=== PATIENT | female | born 1935 | race Caucasian/White ===

== ENCOUNTER 2019-03-09 18:07 | Inpatient (IN) ==
[2019-03-09] MEDS: VASOPRESSIN 100 UNITS in SODIUM CHLORIDE 0.9% 95 ML IV SCH (20:05)
[2019-03-09] MEDS ORDERED: SODIUM CHLORIDE 0.9% 1,000 ML IV PRN ×3 (20:19→21:01)
[2019-03-09 20:21] LABS: Hematocrit 39.2 VOL% (35.7-47.0)
[2019-03-09] MEDS ORDERED: ONDANSETRON 4 MG/2 ML VIAL IV PRN (20:50)
[2019-03-09] MEDS ORDERED: ALBUTEROL 2.5 MG/3 ML NEB RESP TX PRN (20:50)
[2019-03-09 20:53] LABS: INR 1.2; PT Patient Result 12.7 SECS (9.6-12.2); Partial Thromboplastin Time 27.5 SECS (20.8-36.0)
[2019-03-09 23:14] LABS: Hematocrit 37.6 VOL% (35.7-47.0); Hemoglobin 11.6 GM/DL (12.0-16.0)
[2019-03-10] MEDS: PANTOPRAZOLE INJ 200 MG in SODIUM CHLORIDE 0.9% 250 ML IV SCH (00:07)
[2019-03-10] MEDS: PHENYLEPHRINE DRIP 40 MG/250 ML PREMIX IV PRN ×3 (00:18→15:34)
[2019-03-10] MEDS ORDERED: PHENYLEPHRINE DRIP 40 MG/250 ML PREMIX IV ONE (00:20)
[2019-03-10 03:30] LABS: Basophils # 0.1 10*3/uL (0.0-0.2); Basophils % 0.6 % (0.0-0.8); Eosinophils # 0.2 10*3/uL (0.0-0.87); Eosinophils % 1.2 % (0.00-10.9); Hematocrit 39.2 VOL% (35.7-47.0); Immature Granulocytes % 3.5 %; Immature Granulocytes Absolute 0.44 #; Lymphocytes # 1.7 10*3/uL (1.4-4.0); Mean Corpuscular HGB Conc 30.6 GM/DL (32-36); Mean Corpuscular Volume 86.9 FL (87-102); Mean Platelet Volume 9.4 FL (9.6-12.0); Monocytes % 9.7 % (1.7-12.7); Platelet Count 349 T/CUMM (130-400); Red Blood Count 4.51 MC/CUMM (3.8-5.5); Red Cell Distribution Width 16.8 % (9.3-17.3); White Blood Count 12.4 T/CUMM (4-12)
[2019-03-10 03:52] LABS: Albumin 2.3 G/DL (3.4-5.0); Bilirubin,Total 0.8 MG/DL (0.2-1.0); Calcium 7.8 MG/DL (8.5-10.1); Osmolality,Calculated 285.5 MOS/KG (273-304); Total Protein 6.3 G/DL (6.4-8.3)
[2019-03-10 06:49] LABS: Hematocrit 38.5 VOL% (35.7-47.0); Hemoglobin 11.8 GM/DL (12.0-16.0)
[2019-03-10 07:00] LABS: INR 1.1; PT Patient Result 11.7 SECS (9.6-12.2)
[2019-03-10] MEDS: VASOPRESSIN 100 UNITS in SODIUM CHLORIDE 0.9% 95 ML IV SCH ×3 (09:54→22:27)
[2019-03-10] MEDS ORDERED: ALBUTEROL/IPRATROPIUM 3 ML NEB RESP TX PRN (10:00)
[2019-03-10] MEDS ORDERED: ALBUTEROL/IPRATROPIUM 3 ML NEB RESP TX SCH (10:00)
[2019-03-10] MEDS ORDERED: POLYVINYL ALCOHOL 1.4% OPH SOLN 15 ML BOTTLE BOTH EYES PRN (10:31)
[2019-03-10] MEDS: FLUTICASONE 50 MCG NASAL SPRAY 16 GM BOTTLE BOTH NARES SCH (11:28)
[2019-03-10] MEDS: BISACODYL 5 MG TABLET PO SCH ×3 (11:28→22:30)
[2019-03-10] MEDS: clonazePAM 0.5 MG TABLET PO SCH ×2 (11:28→22:16)
[2019-03-10] MEDS: BUDESONIDE/FORMOTEROL 160-4.5 INHALER 6 GM INH SCH ×2 (11:29→22:16)
[2019-03-10] MEDS: LEVOTHYROXINE 75 MCG TABLET PO SCH (11:29)
[2019-03-10] MEDS: MONTELUKAST 10 MG TABLET PO SCH (11:29)
[2019-03-10] MEDS: cycloSPORINE OPH EMUL 1 VIAL BOTH EYES SCH (11:29)
[2019-03-10] MEDS: predniSONE 20 MG TABLET PO SCH (13:58)
[2019-03-10 13:59] LABS: Hematocrit 42.9 VOL% (35.7-47.0); Hemoglobin 12.9 GM/DL (12.0-16.0)
[2019-03-10 14:48] LABS: Hematocrit 40.2 VOL% (35.7-47.0)
[2019-03-10] MEDS ORDERED: POLYETHYLENE GLYCOL POWDER 255 GM BOTTLE PO ONE (18:00)
[2019-03-10] MEDS ORDERED: MAGNESIUM CITRATE 300 ML BOTTLE PO ONE (21:00)
[2019-03-10 21:04] LABS: Hematocrit 35.2 VOL% (35.7-47.0); Hemoglobin 10.7 GM/DL (12.0-16.0)
[2019-03-10] MEDS: MIRTAZAPINE 30 MG TABLET PO SCH (22:16)
[2019-03-11] MEDS: PANTOPRAZOLE INJ 200 MG in SODIUM CHLORIDE 0.9% 250 ML IV SCH (01:06)
[2019-03-11 04:03] LABS: Basophils % 0.1 % (0.0-0.8); Hematocrit 34.8 VOL% (35.7-47.0); Hemoglobin 10.6 GM/DL (12.0-16.0); Immature Granulocytes % 1.7 %; Immature Granulocytes Absolute 0.13 #; Lymphocytes # 0.9 10*3/uL (1.4-4.0); Lymphocytes % 11.6 % (21.3-54.2); Mean Corpuscular HGB Conc 30.5 GM/DL (32-36); Mean Corpuscular Volume 86.8 FL (87-102); Mean Platelet Volume 9.6 FL (9.6-12.0); Monocytes % 2.8 % (1.7-12.7); NRBC # 0.02 10*3/uL; Neutrophils % 83.8 % (38.7-73.9); Platelet Count 234 T/CUMM (130-400); Red Blood Count 4.01 MC/CUMM (3.8-5.5); White Blood Count 7.5 T/CUMM (4-12)
[2019-03-11 04:17] LABS: Calcium 7.9 MG/DL (8.5-10.1); Osmolality,Calculated 289.4 MOS/KG (273-304)
[2019-03-11] MEDS ORDERED: LACTATED RINGERS 1,000 ML IV SCH (06:30)
[2019-03-11] MEDS: VASOPRESSIN 100 UNITS in SODIUM CHLORIDE 0.9% 95 ML IV SCH (08:23)
[2019-03-11] MEDS: BUDESONIDE/FORMOTEROL 160-4.5 INHALER 6 GM INH SCH ×2 (08:23→20:35)
[2019-03-11] MEDS ORDERED: LIDOCAINE 2% 5 ML VIAL ONE ×2 (10:00→10:02)
[2019-03-11] MEDS ORDERED: ETOMIDATE 20 MG/10 ML VIAL IV ONE (10:00)
[2019-03-11] MEDS ORDERED: KETAMINE 500 MG/10 ML VIAL ONE (10:01)
[2019-03-11] MEDS ORDERED: MIDAZOLAM 2 MG/2 ML VIAL ONE (10:02)
[2019-03-11] MEDS ORDERED: ETOMIDATE 40 MG/20 ML VIAL IV ONE (10:02)
[2019-03-11] MEDS: clonazePAM 0.5 MG TABLET PO SCH ×2 (11:10→20:35)
[2019-03-11] MEDS: MONTELUKAST 10 MG TABLET PO SCH (11:10)
[2019-03-11] MEDS: predniSONE 20 MG TABLET PO SCH (11:10)
[2019-03-11] MEDS: LEVOTHYROXINE 75 MCG TABLET PO SCH (11:10)
[2019-03-11] MEDS: FLUTICASONE 50 MCG NASAL SPRAY 16 GM BOTTLE BOTH NARES SCH (11:14)
[2019-03-11] MEDS: cycloSPORINE OPH EMUL 1 VIAL BOTH EYES SCH (11:15)
[2019-03-11 11:37] LABS: Apearance,Urine Slightly Hazy (Clear); Bacteria,Urine Few /HPF (Few); Bilirubin,Urine Negative (Negative); Blood, Urine Negative (Negative); Glucose,Urine (UA) Negative (Negative); Hyaline Casts,Urine 20 /LPF (0-3); Ketones,Urine Negative (Negative); Mucus,Urine Occasional /LPF (Occasional); Nitrite,Urine Negative (Negative); Protein,Urine 30 MG/DL; RBC,Urine 9 /HPF (0-4); Squamous Epithelial Cell,Urine Occasional /HPF (0-10); Urine Color Yellow (Yellow); Urine Specific Gravity 1.019 (1.001-1.035); Urine Urobilinogen < 2.0 EU/DL (0.2-1.0); WBC,Urine 123 /HPF (0-6)
[2019-03-11] MEDS: MIRTAZAPINE 30 MG TABLET PO SCH (20:35)
[2019-03-11] MEDS: GABAPENTIN 600 MG TABLET PO SCH (20:35)
[2019-03-11] MEDS: COLESEVELAM 625 MG TABLET PO SCH (20:35)
[2019-03-12 05:17] LABS: Basophils % 0.1 % (0.0-0.8); Hematocrit 33.1 VOL% (35.7-47.0); Hemoglobin 9.9 GM/DL (12.0-16.0); Immature Granulocytes % 1.7 %; Immature Granulocytes Absolute 0.13 #; Lymphocytes % 12.9 % (21.3-54.2); Mean Corpuscular HGB Conc 29.9 GM/DL (32-36); Mean Corpuscular Volume 87.3 FL (87-102); Mean Platelet Volume 9.4 FL (9.6-12.0); Monocytes % 8.7 % (1.7-12.7); NRBC # 0.02 10*3/uL; Neutrophils % 76.6 % (38.7-73.9); Platelet Count 237 T/CUMM (130-400); Red Blood Count 3.79 MC/CUMM (3.8-5.5); Red Cell Distribution Width 17.2 % (9.3-17.3); White Blood Count 7.7 T/CUMM (4-12)
[2019-03-12 05:43] LABS: Calcium 8.5 MG/DL (8.5-10.1); Osmolality,Calculated 299.7 MOS/KG (273-304)
[2019-03-12] MEDS ORDERED: LACTATED RINGERS 1,000 ML IV SCH (07:00)
[2019-03-12] MEDS ORDERED: GABAPENTIN 100 MG CAPSULE PO SCH (09:00)
[2019-03-12] MEDS ORDERED: PANTOPRAZOLE 40 MG TABLET PO SCH (09:00)
[2019-03-12] MEDS ORDERED: PROPOFOL 200 MG/20 ML VIAL IV ONE (10:00)
[2019-03-12] MEDS ORDERED: ETOMIDATE 20 MG/10 ML VIAL IV ONE (10:00)
[2019-03-12] MEDS ORDERED: LIDOCAINE 2% 5 ML VIAL ONE (10:00)
[2019-03-12] MEDS: LEVOTHYROXINE 75 MCG TABLET PO SCH (10:34)
[2019-03-12] MEDS: predniSONE 20 MG TABLET PO SCH (10:35)
[2019-03-12] MEDS: clonazePAM 0.5 MG TABLET PO SCH ×2 (10:35→21:10)
[2019-03-12] MEDS: MONTELUKAST 10 MG TABLET PO SCH (10:35)
[2019-03-12] MEDS: cycloSPORINE OPH EMUL 1 VIAL BOTH EYES SCH (10:37)
[2019-03-12] MEDS: BUDESONIDE/FORMOTEROL 160-4.5 INHALER 6 GM INH SCH ×3 (10:37→21:10)
[2019-03-12] MEDS: FLUTICASONE 50 MCG NASAL SPRAY 16 GM BOTTLE BOTH NARES SCH (10:37)
[2019-03-12] MEDS: COLESEVELAM 625 MG TABLET PO SCH (21:10)
[2019-03-12] MEDS: MIRTAZAPINE 30 MG TABLET PO SCH (21:10)
[2019-03-12] MEDS: GABAPENTIN 600 MG TABLET PO SCH (21:10)
[2019-03-13 08:09] VITALS: BP 122/61
== END 2019-03-13 08:21 | DRG 380 ==
LOC: N.CC 19:57 → SUATTDRO 19:57 → N.4E 03-11 17:41
PROVIDERS: ADMIT Internal Medicine; ATTEND Internal Medicine